=== PATIENT | male | born 1960 | race African-American/Black ===

== ENCOUNTER → 2021-11-05 | Outpatient (CLI) | payer BC ==
--- NOTE | 2021-11-05 15:45 | RAD ---
US EXT NON VASC LEFT Clinical Indication: Reason: Lumps LT Medial Lower Leg x 2 / Comparison: None. TECHNIQUE: Real-time ultrasound imaging of the soft tissues of the left lower leg is performed. Findings: In the area of palpable concern of the proximal medial calf and mid calf there is occluded greater sa phenous vein and other varicosities which are noncompressible and there is lack of color flow. In the distal thigh and distal calf the greater saphenous vein is patent and compressible. IMPRESSION: There is superficial thrombophlebitis of the greater saphenous vein and adjacent varicose veins in th e proximal and mid calf areas of palpable concern. Electronically signed by: Mick Noriega MD (11/05/2021 3:43 PM) [id number]
== END ==
LOC: US 14:21
PROVIDERS: ATTEND Physician Assistant
DX: R22.42 Localized swelling, mass and lump, left lower limb (principal)
CPT/HCPCS: 76881